=== PATIENT | female | born 1990 | race Caucasian/White ===

== ENCOUNTER → 2017-11-30 | Outpatient (CLI) | payer BC ==
[~2017-11-30] MED LIST: NORE1TAB11 PO
[2017-11-30 14:57] LABS: BASOPHILS # (AUTO) 0.06 x10^3/uL (0-0.1); BASOPHILS % (AUTO) 1 % (0-1); EOSINOPHILS # (AUTO) 0.12 x10^3/uL (0-0.4); EOSINOPHILS % (AUTO) 1 % (1-7); LYMPHOCYTES # (AUTO) 3.09 x10^3/uL (1-3.4); LYMPHOCYTES % (AUTO) 33 % (22-44); MD NO; MEAN CORPUSCULAR HGB CONC 33.6 g/dL (32.4-35.8); MEAN CORPUSCULAR VOLUME 92.2 fL (80-100); MEAN PLATELET VOLUME 10.1 fL (7.4-10.4); MONOCYTES # (AUTO) 0.74 x10^3/uL (0.2-0.8); MONOCYTES % (AUTO) 8 % (2-9); NEUTROPHILS # (AUTO) 5.26 x10^3/uL (1.8-6.8); NEUTROPHILS % (AUTO) 57 % (42-75); PLATELET COUNT 263 x10^3/uL (130-400); RED BLOOD COUNT 4.81 x10^6/uL (3.82-5.3); RED CELL DISTRIBUTION WIDTH 12.1 % (9.6-15.2)
[2017-11-30 15:01] LABS: MICROSCOPIC NOT IND
[2017-11-30 15:07] LABS: ALANINE AMINOTRANSFERASE 20 U/L (12-78); ALBUMIN 4.1 g/dL (3.4-5.0); ANION GAP 4 mmol/L (5-15); CALCIUM 9.5 mg/dL (8.5-10.1); CHLORIDE 109 mmol/L (98-107); CREATININE 0.82 mg/dL (0.55-1.02)
[2017-11-30 15:08] LABS: CULTURE INDICATED? NO
[2017-11-30 15:11] LABS: ALKALINE PHOSPHATASE 61 U/L (45-117); BILIRUBIN,TOTAL 1.2 mg/dL (0.2-1.0); TOTAL PROTEIN 7.8 g/dL (6.4-8.2)
== END | disposition home or self-care (01) ==
LOC: STAR 14:13
PROVIDERS: ATTEND Obstetrics & Gynecology
DX: Z01.818 Encounter for other preprocedural examination (principal); N80.0 Endometriosis of uterus; R10.2 Pelvic and perineal pain
CPT/HCPCS: 36415; 80053; 81003; 84702; 85025

== ENCOUNTER 2017-12-06 08:34 | Day surgery (SDC) | payer BC ==
[~2017-12-06] VITALS: Ht 160 cm; Wt 50.8 kg
[2017-12-06] MEDS ORDERED: FENTANYL PF 100 MCG/2ML ONE (08:57)
[2017-12-06] MEDS ORDERED: MIDAZOLAM 1 MG/ML, 2ML ONE (08:57)
[2017-12-06 08:58] VITALS: BP 127/84
[2017-12-06] MEDS ORDERED: LACTATED RINGERS 1,000 ML IV SCH (09:04)
[2017-12-06 09:10] LABS: HCG UR SG 1.019 (1.003-1.030)
[2017-12-06] MEDS ORDERED: BUPIVACAINE 0.25% ONE (09:12)
[2017-12-06] MEDS ORDERED: FLUORESCEIN SODIUM 500 MG/5 ML ONE (09:13)
[2017-12-06] MEDS ORDERED: SCOPOLAMINE PATCH, 1.5MG PATCH.TD72 TD ONE ×2 (09:15→09:30)
[2017-12-06] MEDS ORDERED: CLINDAMYCIN 150 MG/ML, 6ML ONE (09:20)
[2017-12-06] MEDS ORDERED: KETOROLAC 30 MG/1 ML ONE ×2 (09:29→10:41)
[2017-12-06] MEDS ORDERED: GLYCOPYRROLATE 0.2MG/1ML, 5ML ONE (09:29)
[2017-12-06] MEDS ORDERED: NEOSTIGMINE 1 MG/ML, 10ML ONE (09:29)
[2017-12-06] MEDS ORDERED: PROMETHAZINE 25 MG/ML, 1ML IV PRN (09:30)
[2017-12-06] MEDS ORDERED: EPHEDRINE 50 MG/ML, 1ML IVPush PRN (09:30)
[2017-12-06] MEDS ORDERED: hydrALAzine 20 MG/ML, 1ML IV PRN (09:30)
[2017-12-06] MEDS ORDERED: ACETAMINOPHEN 500 MG TABLET PO ONE (09:30)
[2017-12-06] MEDS ORDERED: DIAZEPAM 5 MG/ML, 2ML IVPush PRN (09:30)
[2017-12-06] MEDS ORDERED: GABAPENTIN 300 MG CAPSULE PO ONE (09:30)
[2017-12-06] MEDS ORDERED: MORPHINE SULFATE 4 MG/ML, 1ML IVPush PRN (09:30)
[2017-12-06] MEDS ORDERED: FENTANYL PF 100 MCG/2ML IV PRN (09:30)
[2017-12-06] MEDS ORDERED: METOPROLOL 1 MG/ML, 5ML IV PRN (09:30)
[2017-12-06] MEDS ORDERED: MEPERIDINE/PF 25MG/0.5ML IVPush PRN (09:30)
[2017-12-06] MEDS ORDERED: HYDROcodone/APAP 7.5-325MG/15ML UDC PO PRN (09:30)
[2017-12-06] MEDS ORDERED: LABETALOL 5MG/ML, 20ML IV PRN (09:30)
[2017-12-06] MEDS ORDERED: ALBUTEROL SULFATE 2.5 MG/3 ML NPPB PRN (09:30)
[2017-12-06] MEDS ORDERED: ONDANSETRON 2MG/ML, 2ML ONE (10:24)
[2017-12-06] MEDS ORDERED: DEXAMETHASONE 4 MG/ML, 1ML ONE ×2 (10:24)
[2017-12-06] MEDS ORDERED: PROPOFOL 10 MG/ML, 20ML ONE (10:24)
[2017-12-06] MEDS ORDERED: ROCURONIUM 10MG/ML,5ML ONE (10:24)
[2017-12-06] MEDS ORDERED: MEPERIDINE/PF 50 MG/ML ONE (10:50)
[2017-12-06] MEDS ORDERED: HYDROcodone/APAP 7.5-325MG/15ML UDC ONE (13:20)
== END 2017-12-06 17:05 ==
LOC: OR 08:34
PROVIDERS: ATTEND Obstetrics & Gynecology
DX: N72 Inflammatory disease of cervix uteri (principal); N94.6 Dysmenorrhea, unspecified; N94.10 Unspecified dyspareunia; D25.9 Leiomyoma of uterus, unspecified; R06.09 Other forms of dyspnea; G47.33 Obstructive sleep apnea (adult) (pediatric); Z90.722 Acquired absence of ovaries, bilateral; Z98.890 Other specified postprocedural states; Z88.1 Allergy status to other antibiotic agents; Z88.8 Allergy status to other drugs, medicaments and biological substances; Z88.0 Allergy status to penicillin
CPT/HCPCS: 58550; 81025; 88307; J1100; J1885; J2175; J2250; J2405; J2704; J2710; J3010; J3490; J7120